=== PATIENT | male | born 1980 | race Caucasian/White ===

== ENCOUNTER 2017-09-03 23:29 | Emergency (ER) | payer OTHER ==
[~2017-09-03] VITALS: Ht 157.5 cm; Wt 68.5 kg
[~2017-09-03 23:29] MED LIST: CLINDAMYCIN HC150 M1 PO; CLINDAMYCIN300 MG PO; FLEXERIL10 MG PO; HYDROCODONE/ACE1 TA1 PO; IBUPROFEN800 M1 PO; MOTRIN600 MG PO; NORCO 325 MG-51 TAB PO; PERCOCET 325 MG1 TA2 PO; PERCOCET 5-3251 EACH PO; VICODIN5-300 PO; ZITHROMAX Z-PA250 M1 PO
[2017-09-03 23:45] VITALS: BP 140/78
--- NOTE | 2017-09-04 00:34 | ED UPPER/LOWER EXTREMITY COMPL ---
History of Present Illness General Chief Complaint: General Adult Stated Complaint: FISHING HOOK IN FINGER Source: patient Exam Limitations: no limitations Vital Signs & Intake/Output Vital Signs & Intake/Output Vital Signs Date Time Temp Pulse Resp B/P B/P Pulse O2 O2 Flow FiO2 Mean Ox Delivery Rate 09/03 2345 96.9 77 14 140/78 100 Room Air ED Intake and Output 09/04 0000 09/03 1200 Intake Total Output Total Balance Patient 151 lb Weight Weight Reported by Patient Measurement Method Allergies Coded Allergies: amoxicillin (Intermediate, HIVES 11/11/15) codeine (Mild, RASH 11/11/15) diphenhydramine (From BENADRYL) (Mild, PASSES OUT 11/11/15) Reconcile Medications Clindamycin HCl 150 MG CAPSULE 1 CAP PO TID gingivitis CYCLOBENZAPRINE HCL (Flexeril) 10 MG TAB 1 TAB PO Q8P PRN PAIN Ibuprofen (Motrin) 600 MG TAB 1 TAB PO Q8P PRN PAIN Ibuprofen 800 MG TABLET 1 TAB PO Q6PRN PRN pain OXYCODONE HCL/ACETAMINOPHEN (Percocet 5-325 MG Tablet) 325 MG/5 MG TAB 1-2 TAB PO Q4-6 PRN PRN PAIN Oxycodone HCl/Acetaminophen (Percocet 5-325 MG Tablet) 1 EACH TABLET 1-2 TAB PO Q6PRN PRN pain Triage Note: PT PRESENTS TO THE ER WITH A FISHING HOOK IN RIGHT HAND MIDDLE FINGER. Triage Nurses Notes Reviewed? yes Onset: Abrupt Duration: constant Timing: single episode today Severity: moderate Severity Numbers: 5 HPI: Patient is a 36-year-old male who presents emergency room stating that earlier today patient was putting his right hand into a tackle box and when she suddenly felt a sharp fishhook strike the right aspect of his third digit of his hand in which she pulled back immediately and was the fish hook penetrated his skin deeper where he states that he was unable to remove his hand from a tackle box where he had to cut the distal aspect of the fishhook off in which she is unable to remove the fishhook prior to arrival. Tetanus is up-to-date. Bleeding was controlled prior to arrival. Patient is right-handed. (Brett Stevens) Past History Travel History Traveled to [place] past 21 day No Medical History Any Pertinent Medical History? 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 No (Brett Stevens) Review of Systems Review of Systems Constitutional: Reports: no symptoms. EENTM: Reports: no symptoms. Respiratory: Reports: no symptoms. Cardiovascular: Reports: no symptoms. Gastrointestinal/Abdominal: Reports: no symptoms. Genitourinary: Reports: no symptoms. Musculoskeletal: Reports: see HPI. Skin: Reports: see HPI. Neurological/Psychological: Reports: no symptoms. Hematologic/Endocrine: Reports: no symptoms. Immunological: Reports: no symptoms. All Other Systems: Reviewed and Negative (Brett Stevens) Physical Exam Physical Exam General Appearance: no apparent distress, alert Head: atraumatic Eyes: Bilateral: normal appearance. Ears, Nose, Throat: hearing grossly normal Neck: normal inspection Cardiovascular/Respiratory: no respiratory distress Peripheral Pulses: 2+ radial (R) Back: normal inspection Shoulder Right: normal range of motion, normal inspection Elbow Right: normal range of motion, normal inspection Neurologic/Tendon: normal sensation, normal motor functions, normal tendon functions, responds to pain, no evidence tendon injury, no pulse deficit Skin: normal color, warm/dry Diagram Hands Back 1) Noted foreign body suspecting fishhook approximately 3 mm metallic cylindrical piece showing no tenting on the distal aspect no active bleeding fall active range of motion with flexion and extension Dermatomes intact (Brett Stevens) Progress Differential Diagnosis: arterial insufficiency, compartment syndrome, contusion, dislocation, DVT, fracture, gout, septic arthritis, sprain, tendon injury Plan of Care: Patient does state that he cut the distal aspect of the exposed foreign body prior to arrival in which he also states there is one belle on the proximal aspect of the fishhook. Due to the minimal exposure that I will proceed with retracting the fishhook Using sterile technique of Betadine I used approximately 5 mL of 1% lidocaine for digital block of right third digit of his hand index finger Local anesthesia was successful then using a needle nosed pliers I retracted the fishhook patient tolerated well the entire fishhook was examined and noted to be intact no concerns at this time of foreign body retention however I did discuss the potential of foreign body in which she will also observe signs of infection, I then cleaned the wound with chlorhexidine and apply bacitracin bandage. Patient tolerated well no active bleeding on discharge upon discharge patient looks well no apparent distress and will comply with discharge instructions and had no questions No concerns of fracture or or tendon deficit (Brett Stevens) Departure Departure Disposition: HOME OR SELF CARE Condition: Stable Clinical Impression Primary Impression: Fish hook injury of finger of right hand Referrals: Patient Has No Primary Care Dr (PCP/Family) Additional Instructions: As discussed if you note signs of infection redness, pain, swelling, discharge or new concerning symptom occurs return to the emergency room, begin to apply bacitracin with bandage and change once today for the following 4 days on the area open to improve healing. 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 I have also reviewed all the pertinent lab results and diagnostic results. I agree with the findings and the plan of care as documented in the PA's/NEW AUTOS DELIVERY DRIVER's documentation. x I have reviewed the ED Record and agree with the PA's/NEW AUTOS DELIVERY DRIVER's documentation. [] Additions or exceptions (if any) to the PAs/NEW AUTOS DELIVERY DRIVER's note and plan are summarized below: [] (Brianna ERICKSON,[place])
== END 2017-09-04 01:13 ==
LOC: ERH 23:29
DX: S60.452A Superficial foreign body of right middle finger, initial encounter (principal); W45.8XXA Other foreign body or object entering through skin, initial encounter; Y92.9 Unspecified place or not applicable; Y93.9 Activity, unspecified

== ENCOUNTER 2017-10-28 23:27 | Emergency (ER) | payer OTHER ==
[~2017-10-28] VITALS: Ht 157.5 cm; Wt 68.0 kg
--- NOTE | 2017-10-29 00:57 | RADIOLOGY REPORT ---
EXAMINATION: XR HAND, LEFT CLINICAL INFORMATION: Fracture. Blunt trauma of the left hand. COMPARISON: None TECHNIQUE: PA, lateral, and oblique views of the left hand. FINDINGS: There is no fracture or dislocation. Alignment is anatomic. Joint spaces are maintained. The soft tissues are unremarkable. IMPRESSION: No fracture or malalignment.
[2017-10-29] MEDS ORDERED: IBUPROFEN600 M1 PO (01:16)
--- NOTE | 2017-10-29 01:17 | ED HAND/WRIST INJURY COMPLAINT ---
History of Present Illness General Chief Complaint: Hand or Wrist Injury Stated Complaint: "? INJURY TO LT HAND" Source: patient, old records Exam Limitations: no limitations Vital Signs & Intake/Output Vital Signs & Intake/Output Vital Signs Date Time Temp Pulse Resp B/P B/P Pulse O2 O2 Flow FiO2 Mean Ox Delivery Rate 10/28 2338 97.6 99 18 122/82 97 Room Air ED Intake and Output 10/29 0000 10/28 1200 Intake Total Output Total Balance Patient 150 lb Weight Weight Reported by Patient Measurement Method Allergies Coded Allergies: amoxicillin (Intermediate, HIVES 11/11/15) codeine (Mild, RASH 11/11/15) diphenhydramine (From BENADRYL) (Mild, PASSES OUT 11/11/15) Reconcile Medications Clindamycin HCl 150 MG CAPSULE 1 CAP PO TID gingivitis CYCLOBENZAPRINE HCL (Flexeril) 10 MG TAB 1 TAB PO Q8P PRN PAIN Ibuprofen (Motrin) 600 MG TAB 1 TAB PO Q8P PRN PAIN Ibuprofen 800 MG TABLET 1 TAB PO Q6PRN PRN pain Ibuprofen 600 MG TABLET 1 TAB PO Q6PRN PRN pain with food OXYCODONE HCL/ACETAMINOPHEN (Percocet 5-325 MG Tablet) 325 MG/5 MG TAB 1-2 TAB PO Q4-6 PRN PRN PAIN Oxycodone HCl/Acetaminophen (Percocet 5-325 MG Tablet) 1 EACH TABLET 1-2 TAB PO Q6PRN PRN pain Triage Note: PT FROM HOME C/O LEFT HAND INJURY DUE TO SCRAP METAL FALLING ON PTS LEFT HAND. PT HAS NO NOTED DEFORMITY. PT WOULD LIKE TO BE SEEN DUE TO BONES ALREADY BROKEN IN THAT SAME HAND YEARS AGO. VSS. PT DECLINES MEDICATION OR ICE PACK "I WILL WAIT UNTIL I GO BACK THERE AND I ALREADY HAD ICE ON IT". PT AMBULATE TO MOVE FINGERS +FEELING +PULSE IN LEFT HAND. Triage Nurses Notes Reviewed? yes Occurred: just prior to arrival Duration: minute(s):, constant, continues in ED Timing: recent history Injury Environment: work Severity: mild, moderate Pain/Injury Location: Left: Hand. Context: blow Method of Injury: direct blow Modifying Factors: Improves With: immobilization, rest. Worsens With: movement. Associated Symptoms: GCS 15 since, stiffness HPI: The patient is right-hand dominant. Prior to admission patient's left hand was on the floor in a bar struck it over the dorsum at the fourth and fifth metacarpal. He denies fever chills nausea vomiting diarrhea abdominal pain chest pain shortness breath headache dysuria rash bleeding other injury. Past History Travel History Traveled to [place] past 21 day No Medical History Any Pertinent Medical History? 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 No Review of Systems Review of Systems Constitutional: Reports: no symptoms. EENTM: Reports: no symptoms. Respiratory: Reports: no symptoms. Cardiovascular: Reports: no symptoms. GI: Reports: no symptoms. Genitourinary: Reports: no symptoms. Musculoskeletal: Reports: see HPI, joint pain. Skin: Reports: no symptoms. Neurological/Psychological: Reports: no symptoms. Hematologic/Endocrine: Reports: no symptoms. Immunologic/Allergic: Reports: no symptoms. All Other Systems: Reviewed and Negative Physical Exam Physical Exam General Appearance: well developed/nourished, alert, awake, anxious, mild distress Head: atraumatic, normal appearance Eyes: Bilateral: normal appearance, PERRL, EOMI. Ears, Nose, Throat: normal pharynx, normal ENT inspection, hearing grossly normal Neck: normal inspection, supple, full range of motion Cardiovascular/Respiratory: normal breath sounds, normal peripheral pulses, regular rate/rhythm, no respiratory distress Back: normal inspection, normal range of motion, no vertebral tenderness Shoulder Left: normal range of motion, normal inspection Shoulder Right: normal range of motion, normal inspection Elbow Left: normal range of motion, normal inspection Elbow Right: normal range of motion, normal inspection Forearm Left: normal range of motion, normal inspection Forearm Right: normal range of motion, normal inspection Wrist Left: normal range of motion, normal inspection Wrist Right: normal range of motion, normal inspection Hand Left: normal inspection, limited range of motion, tender Hand Right: normal inspection, normal range of motion Reflexes: 2+: bicep (R), bicep (L). Neurologic/Tendon: normal sensation, normal motor functions, normal tendon functions Skin: intact, normal color, warm/dry Lymphatic: no anterior cervical mary Progress Differential Diagnosis: contusion, fracture Plan of Care: Orders Procedure Date/time Status Durable Medical Equipment 10/29 115 Active Current Medications Sig/[place] Start time Last Medication Dose Stop Time Status Admin Ibuprofen 600 MG ONCE ONE 10/29 129 UNVr (Motrin) 10/29 130 splint ibuprofen Diagnostic Imaging: Viewed by Me: Radiology Read. Discussed w/RAD: Radiology Read. Radiology Impression: no acute abnormality, no fracture, no dislocation Departure Departure Time of Disposition: 114 Disposition: HOME OR SELF CARE Condition: Stable Clinical Impression Primary Impression: Contusion of left hand Qualifiers: Encounter type: initial encounter Qualified Code: S60.222A - Contusion of left hand, initial encounter Referrals: Patient Has No Primary Care Dr (PCP/Family) Departure Forms: Customer Survey General Discharge Information RELEASE- WORK Prescriptions: Current Visit Scripts Ibuprofen 1 TAB PO Q6PRN PRN pain #50 TAB with food
[2017-10-29 01:23] VITALS: BP 123/74
== END 2017-10-29 01:23 ==
LOC: ERH 23:27
DX: S60.222A Contusion of left hand, initial encounter (principal); W22.8XXA Striking against or struck by other objects, initial encounter; Y92.9 Unspecified place or not applicable; Y93.9 Activity, unspecified
CPT/HCPCS: 73130-LT